=== PATIENT | male | born 1965 | race Caucasian/White ===

== ENCOUNTER → 2024-04-11 | Outpatient (CLI) | payer BC ==
--- NOTE | 2024-04-11 10:52 | US ---
EXAMINATION TYPE: US prostate transrectal DATE OF EXAM: 04/11/2024 COMPARISON: NONE CLINICAL INDICATION: Male, 58 years old with history of R97.20 ELEVATED PROSTATE SPECIFIC; This examination was performed using the transrectal probe. EXAM MEASUREMENTS: Gland Size: 4.1 x 2.8 x 4.3cm Volume: 25.7ml Predicted PSA: 3.08 Actual PSA (if available):4.77 Heterogeneous prostate gland without focal lesion identified. Prostate calcifications noted. IMPRESSION: Heterogenous prostate gland without focal lesion identified. If there is continued clini altagracia concern, consider further evaluation with MRI prostate.
== END | disposition home or self-care (01) ==
LOC: RADUSWWP 07:57
PROVIDERS: ATTEND Family Medicine
DX: N42.89 Other specified disorders of prostate (principal); R97.20 Elevated prostate specific antigen [PSA]
CPT/HCPCS: 76872

== ENCOUNTER → 2024-05-16 | Outpatient (CLI) | payer BC ==
--- NOTE | 2024-05-16 09:29 | MR ---
EXAMINATION TYPE: MR Prostate wo/w con DATE OF EXAM: 05/16/2024 8:53 AM COMPARISON: None. CLINICAL INDICATION:Male, 58 years old with history of R97.20 ELEVATED PROSTATE SPECIFIC ANTIGEN [PSA ]; Abnormal US TECHNIQUE: Multi-planar, multi-sequence imaging of the pelvis is performed prior to and following the uncomplicated administration of bolus intravenous gadolinium. CONTRAST: 7.5 Gadavist Interpretive Criteria: PI-RADS v2.1 SERUM PSA: 2.45 2022 SURGICAL PATHOLOGY: No data available. FINDINGS: Prostatic dimensions: 3.8 x 4.9 x 3.7 cm. "Bullet" Volume:45.09 (PSA density=0.05 ng/mL/mL) CENTRAL GLAND (Central and Transition Zones/CZ+TZ): Multiple bilateral, heterogenous appearing hypertrophic stromal nodules, without suspicious lesion. M edian lobe hypertrophy with protrusion into the base of the bladder. (PI-RADS 2) PERIPHERAL ZONE (PZ): Bilateral linear, indistinct wedgelike areas of low ADC, and low T2 signal, No evidence of masslike a bnormality, or localized perfusional hypervascularity, to further suggest a focus of clinically signi ficant prostate cancer. (PI-RADS 2) SEMINAL VESICLES (SV): Symmetric and unremarkable. PERIPROSTATIC TISSUES: Unremarkable. LYMPH NODES: No enlarged pelvic lymph node. REMAINING PELVIS: Bladder wall is within normal limits given distention. No abnormal free or organized intrapelvic fluid collection. No pathologic bowel dilation or mural thickening. Left fat containing inguinal hernia OSSEOUS STRUCTURES: No suspicious osseous abnormality. IMPRESSION: 1. No specific features for high-risk prostate cancer. Maximum PI-RADS score: 2. 2. Mild BPH, estimated gland volume 45.09 mL. 3. No suspicious osseous lesion. No lymphadenopathy. No evidence of prostate adenocarcinoma involving the periprostatic tissues.
== END | disposition home or self-care (01) ==
LOC: RADMRIMAIN 07:54
PROVIDERS: ATTEND Family Medicine
DX: N40.0 Benign prostatic hyperplasia without lower urinary tract symptoms (principal); R97.20 Elevated prostate specific antigen [PSA]
CPT/HCPCS: 72197; A9585